=== PATIENT | male | born 1940 | race Two or more races ===

== ENCOUNTER 2016-06-18 13:26 | Inpatient (IN) | payer OTHER ==
[~2016-06-18] VITALS: Ht 160 cm; Wt 68.2 kg
[2016-06-18] MEDS ORDERED: ATOR20TA PO (13:50)
[2016-06-18] MEDS ORDERED: ASPI325T4 PO (13:50)
[2016-06-18] MEDS ORDERED: LISI-646 PO (13:50)
[2016-06-18] MEDS ORDERED: GLIP-115 PO (13:50)
[2016-06-18 13:55] LABS: Basophils # (auto) 0 uL; Basophils % (auto) 0.4 % (0.0-2.0); Eosinophils # (auto) 0 uL; Eosinophils % (auto) 0.3 % (0.0-7.0); Hematocrit 50.3 % (41.0-53.0); Hemoglobin 16.4 g/dL (13.5-17.5); Lymphocytes # (auto) 0.7 uL; Lymphocytes % (auto) 5.7 % (10.0-50.0); Mean Corpuscular Hgb Conc. 32.6 g/dL (32.0-36.0); Mean Platelet Volume 7.2 fL (7.4-10.4); Monocytes # (auto) 0.6 uL; Monocytes % (auto) 5.2 % (0.0-12.0); Neutrophils # (auto) 10.5 uL; Neutrophils % (auto) 88.4 % (37.0-80.0); Platelet Count (auto) 259 10^3/uL (140-450); Red Cell Distribution Width 14.4 % (11.6-16.0); White Blood Cell 11.9 10^3/uL (4.4-10.8)
[2016-06-18 14:16] LABS: Albumin 4.1 g/dL (3.4-5.0); BUN/Creatinine Ratio 12.9; Bilirubin, Total 1.3 mg/dL (0.2-1.0); Calcium 9.5 mg/dL (8.5-10.1); Potassium 4.8 mmol/L (3.5-5.1); Total Protein 7.9 g/dL (6.4-8.2)
[2016-06-18] MEDS ORDERED: SODIUM CHLORIDE 0.9% 1,000 ML IVB ONE (14:49)
[2016-06-18] MEDS ORDERED: ASPirin 81 mg TAB PO ONE ×2 (15:00→16:30)
[2016-06-18] MEDS ORDERED: NITROGLYCERIN 0.4 MG SL TAB SL PRN (16:30)
[2016-06-18] MEDS ORDERED: MORPHINE SULF INJ 2 MG/ML SYRINGE 1ML IV PRN (16:30)
[2016-06-18] MEDS ORDERED: DEXTROSE (50%) 50ML SYRG IV PRN (16:30)
[2016-06-18] MEDS: ACCU-CHEK COMFORT CURVE STRIP VI SCH ×2 (17:07→21:37)
[2016-06-18] MEDS: InsuLIN REG 1unit/0.01ml Soln (100units/ml) SC SCH ×2 (17:10→21:37)
[2016-06-18] MEDS: SODIUM CHLORIDE 0.9% 1,000 ML IV SCH (17:15)
[2016-06-18 19:00] VITALS: BP 139/88
[2016-06-18 19:45] VITALS: BP 139/88
[2016-06-18] MEDS: ATORVASTATIN 20 MG TAB PO SCH (21:36)
[2016-06-18] MEDS: METOPROLOL TARTRATE 25 MG TAB PO SCH (21:37)
[2016-06-18 22:00] VITALS: BP 156/71
[2016-06-18] MEDS ORDERED: ASPI81TA27 PO (23:34)
[2016-06-19 05:00] VITALS: BP 145/111
[2016-06-19] MEDS: SODIUM CHLORIDE 0.9% 1,000 ML IV SCH ×2 (05:50→22:30)
[2016-06-19 06:23] LABS: BUN/Creatinine Ratio 19.7; Calcium 8.3 mg/dL (8.5-10.1); Potassium 3.9 mmol/L (3.5-5.1)
[2016-06-19] MEDS: ACCU-CHEK COMFORT CURVE STRIP VI SCH ×4 (06:37→22:00)
[2016-06-19] MEDS: InsuLIN REG 1unit/0.01ml Soln (100units/ml) SC SCH ×4 (06:37→22:00)
[2016-06-19 09:00] VITALS: BP 177/95
[2016-06-19] MEDS: ASPirin 81 mg TAB PO SCH (10:28)
[2016-06-19] MEDS: METOPROLOL TARTRATE 25 MG TAB PO SCH ×2 (10:28→22:46)
[2016-06-19 13:00] VITALS: BP 161/82
[2016-06-19 16:19] LABS: Urine RBC None Seen /hpf (0 - 3)
[2016-06-19 16:27] LABS: Urine Bilirubin Negative (Negative); Urine Blood Negative /uL (Negative); Urine Color Colorless (Yellow); Urine Glucose Normal (Normal); Urine Ketone Negative (Negative); Urine Nitrite Negative (Negative); Urine Squamous Epithelial Cell FEW /hpf (<5); Urine Urobilinogen Normal (Negative); Urine pH 5.5 (5.0-8.0)
[2016-06-19 17:00] VITALS: BP 163/87
[2016-06-19] MEDS: ATORVASTATIN 20 MG TAB PO SCH (22:45)
[2016-06-20 05:30] VITALS: BP 170/90
[2016-06-20] MEDS: ACCU-CHEK COMFORT CURVE STRIP VI SCH ×2 (06:40→11:38)
[2016-06-20] MEDS: InsuLIN REG 1unit/0.01ml Soln (100units/ml) SC SCH ×2 (06:40→11:30)
[2016-06-20 07:37] LABS: Basophils # (auto) 0.1 uL; Basophils % (auto) 1.2 % (0.0-2.0); Eosinophils # (auto) 0.4 uL; Eosinophils % (auto) 6.5 % (0.0-7.0); Hematocrit 43.4 % (41.0-53.0); Lymphocytes # (auto) 0.9 uL; Lymphocytes % (auto) 16.1 % (10.0-50.0); Mean Corpuscular Hemoglobin 29.1 pg (28.0-32.0); Mean Corpuscular Hgb Conc. 32.3 g/dL (32.0-36.0); Mean Corpuscular Volume 90.1 fL (80.0-100.0); Mean Platelet Volume 7.5 fL (7.4-10.4); Monocytes # (auto) 0.4 uL; Monocytes % (auto) 7.7 % (0.0-12.0); Neutrophils # (auto) 3.8 uL; Neutrophils % (auto) 68.5 % (37.0-80.0); Platelet Count (auto) 160 10^3/uL (140-450); Red Cell Distribution Width 13.6 % (11.6-16.0); White Blood Cell 5.6 10^3/uL (4.4-10.8)
[2016-06-20] MEDS: ASPirin 81 mg TAB PO SCH (07:56)
[2016-06-20] MEDS: METOPROLOL TARTRATE 25 MG TAB PO SCH ×2 (08:03→09:00)
[2016-06-20] MEDS: SODIUM CHLORIDE 0.9% 1,000 ML IV SCH (08:03)
[2016-06-20 08:06] LABS: BUN/Creatinine Ratio 23.1; Calcium 8.3 mg/dL (8.5-10.1); Potassium 4.5 mmol/L (3.5-5.1)
[2016-06-20] MEDS ORDERED: GIVE UN DILUTED IV ONE (08:30)
[2016-06-20] MEDS ORDERED: ADENOSINE IV ONE (08:30)
[2016-06-20 08:58] VITALS: BP 233/95
== END 2016-06-20 13:50 | disposition left against medical advice (07) | DRG 280 ==
LOC: EDBD 13:26 → ER 13:29 → TELE-WESTW 13:30
PROVIDERS: ADMIT Internal Medicine; ATTEND Internal Medicine
DX: I21.4 Non-ST elevation (NSTEMI) myocardial infarction (principal); N17.0 Acute kidney failure with tubular necrosis; I49.3 Ventricular premature depolarization; E78.5 Hyperlipidemia, unspecified; I10 Essential (primary) hypertension; E11.65 Type 2 diabetes mellitus with hyperglycemia; Z90.49 Acquired absence of other specified parts of digestive tract
CPT/HCPCS: 36415; 71010; 76775; 78452; 80048; 80053; 81001; 82962; 83036; 83735; 84443; 84484; 85025; 93005; 93017; 93306; 94761; 96360; J0153; J1815